=== PATIENT | female | born 1965 | race Caucasian/White ===

== ENCOUNTER 2017-12-04 06:54 | Day surgery (SDC) | payer OTHER ==
[2017-12-01 16:23] VITALS: BMI 41.9
[2017-12-04] MEDS ORDERED: MIDAZOLAM HCL 2 MG/2 ML SINGLE DOSE VIAL ONE ×2 (08:05)
[2017-12-04] MEDS ORDERED: PROPOFOL 20 ML ONE (08:09)
[2017-12-04] MEDS ORDERED: ONDANSETRON 4 MG/2 ML VIAL ONE ×2 (08:12→09:25)
[2017-12-04] MEDS ORDERED: ceFAZolin SODIUM 1 GM VIAL ONE (08:12)
[2017-12-04] MEDS ORDERED: DEXAMETHASONE SOD PHOSPHATE 4 MG/1 ML VIAL ONE ×2 (08:12→09:25)
[2017-12-04] MEDS ORDERED: MEPIVACAINE HCL/PF 1% 30 ML VIAL ONE (08:13)
[2017-12-04] MEDS ORDERED: ROPIVACAINE HCL 0.5% 30ML VIAL ONE (08:14)
[2017-12-04] MEDS ORDERED: ePHEDrine SULFATE 50 MG/1 ML AMPULE ONE (09:29)
[2017-12-04] MEDS ORDERED: KETOROLAC TROMETHAMINE 30 MG/1 ML VIAL ONE (10:44)
[2017-12-04] MEDS ORDERED: ONDANSETRON 4 MG/2 ML VIAL IVPUSH PRN (11:10)
[2017-12-04] MEDS ORDERED: oxyCODONE HCL 5 MG TABLET PO PRN (11:10)
[2017-12-04] MEDS ORDERED: LACTATED RINGERS SOLUTION 1,000 ML IV SCH (11:15)
[2017-12-04 12:03] VITALS: PULSE 60
[2017-12-04 13:07] VITALS: BP 110/65; TEMP 98
--- NOTE | 2017-12-06 17:24 | OP ---
DATE OF OPERATION: 12/04/2017 LOCATION: [facility]. SURGEON: Caterina José MD TECHNICAL SUPPORT INTERN: RAJINDER Gibson PREOPERATIVE DIAGNOSES: 1. Right shoulder bony Bankart/labral tear. 2. Right shoulder instability. 3. Right shoulder adhesive capsulitis. 4. Right shoulder synovitis. POSTOPERATIVE DIAGNOSES: 1. Right shoulder bony Bankart/labral tear. 2. Right shoulder instability. 3. Right shoulder adhesive capsulitis. 4. Right shoulder synovitis. PROCEDURE: Right shoulder arthroscopy with capsulorrhaphy, repair of anterior capsule and [place], [place] [address]. FINDINGS: 1. Bony Bankart lesion, anterior inferior glenoid. 2. Central grade 2 to 3 cartilage injury. 3. Avulsion of anterior labrum. 4. Shoulder instability, anterior and inferior. PROCEDURE: Informed consent was obtained. The patient was taken to the operating room, where the right upper extremity was prepped and draped in sterile fashion. Using standard arthroscopic technique, a posterior incision and portal was made, which allowed for introduction of the camera into the glenohumeral joint. Prior to this, exam under anesthesia showed anterior and inferior instability with examination. Under direct visualization, an anterior incision and portal was made, followed by a secondary anterior incision. Evaluation of the joint showed a bony Bankart lesion with the fracture in a split to 2 small areas of bone. Soft tissue was debrided and the clot was removed from the glenohumeral joint. A bur was used on the edges of the bone to create a bleeding surface, and a suture anchor was placed in the center of the Bankart lesion on the main portion of the glenoid. A drill was placed through the larger portion of the bone fragment and passed through. This was found to be difficult due to the thinness of the bone and was broken up to another piece, with no adhesion tissue. Allen was then placed inferior to the bony Bankart lesion and a 2nd anchor was then placed superior. These allowed for reduction of the anterior labrum as well as the anterior capsule, creating a large anterior labrum and securing the bony portion. The small remnants of bone that were not repairable were removed, and an area of remaining bone was secured across the bony Bankart area. Because of the incomplete reduction of the bone due to multiple fragments, 2 extra sutures were placed into the cartilage surface of the glenoid and anterior labrum and anterior capsular tissue was used to support this area, creating a large soft tissue labrum and "bump." This was secured using mattress sutures and simple sutures, securing the area. The shoulder was taken through a range of motion and had good stability and strength. The shoulder was then drained. Sutures were placed in all portals. Sterile dressing was placed. The patient was transferred to the recovery room without complication. CATERINA JOSÉ M.D. [id number]
== END 2017-12-04 12:55 | disposition home or self-care (01) ==
LOC: FASU 06:54
PROVIDERS: ATTEND Orthopaedic Surgery
PROC: 0RQJ4ZZ Repair Right Shoulder Joint, Percutaneous Endoscopic Approach (ICD-10-PCS; principal; 2017-12-04 09:39)
DX: M75.01 Adhesive capsulitis of right shoulder (principal); M65.811 Other synovitis and tenosynovitis, right shoulder; X58.XXXA Exposure to other specified factors, initial encounter; Y93.9 Activity, unspecified; Y92.9 Unspecified place or not applicable
CPT/HCPCS: 84703; 94760